=== PATIENT | male | born 1970 | race Caucasian/White ===

== ENCOUNTER 2022-07-25 09:28 | Emergency (ER) | payer MEDICARE ==
[2022-07-25] MEDS ORDERED: HYDROmorphone 0.5 MG/0.5 ML Syringe IVPUSH ONE ×2 (09:50→10:11)
[2022-07-25] MEDS ORDERED: Ondansetron 4 MG/2 ML SDV IVPUSH ONE (09:50)
[2022-07-25] MEDS ORDERED: Sodium Chloride 0.9% 1,000 ML IV SCH (10:00)
[2022-07-25 10:18] LABS: ESTIMATED GFR 103 mL/min (>60)
[2022-07-25] MEDS ORDERED: Alum Hydrox/Mag Hydrox/Simeth 15 ML, Lidocaine 2% 15 ML PO ONE ×2 (10:44)
[2022-07-25] MEDS ORDERED: Ketorolac 30 MG/ML SDV IVPUSH ONE (10:58)
== END 2022-07-25 13:15 | disposition home or self-care (01) ==
LOC: JP.ED 09:28
DX: K82.8 Other specified diseases of gallbladder (principal)
CPT/HCPCS: 36415; 74176; 76705; 80053; 83690; 85025; 96361; 96374; 96375; 99284; A9270; J1170; J1885; J2405; J7030

== ENCOUNTER 2022-07-26 13:47 | Inpatient (IN) | payer MEDICARE | END 2022-07-26 16:22 | disposition home or self-care (01) | DRG 446 | LOC: JP.MS 13:47 | PROVIDERS: ADMIT Student in an Organized Health Care Education/Training Program; ATTEND Student in an Organized Health Care Education/Training Program | DX: K81.0 Acute cholecystitis (principal); K21.9 Gastro-esophageal reflux disease without esophagitis; F17.210 Nicotine dependence, cigarettes, uncomplicated; F10.20 Alcohol dependence, uncomplicated ==

== ENCOUNTER 2022-07-27 07:04 | Inpatient (IN) | payer MEDICARE ==
[~2022-07-27 07:04] MED LIST: Sodium Chloride 0.9% 1,000 ML IV SCH
[2022-07-27 08:49] LABS: ESTIMATED GFR 106 mL/min (>60)
[2022-07-27] MEDS ORDERED: Ropivacaine 40 ML, dexAMETHasone 8 MG, EPINEPHrine 0.4 MG, Sodium Chloride 0.9% 37.6 ML NERVRT SCH ×4 (09:00)
[2022-07-27] MEDS ORDERED: ceFAZolin 2 GM in Sodium Chloride 0.9% 50 ML IV ONE (09:00)
[2022-07-27] MEDS ORDERED: metroNIDAZOLE/Normal Saline 500 MG in Premix Bag 1 BAG IV ONE (09:00)
[2022-07-27] MEDS ORDERED: Potassium Chloride 20 MEQ in Premix Bag 3 BAG IV ONE (09:03)
[2022-07-27] MEDS: Potassium Chloride 20 MEQ, Lidocaine 1% 2 ML in Sodium Chloride 0.9% 100 ML IV SCH ×3 (09:43→14:14)
[2022-07-27] MEDS ORDERED: HYDROmorphone 0.5 MG/0.5 ML Syringe IVPUSH PRN (09:44)
[2022-07-27] MEDS ORDERED: Ondansetron 4 MG/2 ML SDV IVPUSH PRN (09:44)
[2022-07-27] MEDS ORDERED: Potassium Chloride 20 MEQ Tab.ER PO ONE (09:45)
[2022-07-27] MEDS ORDERED: Enoxaparin 40 MG/0.4 ML Syringe SUBCUT ONE (10:00)
[2022-07-27] MEDS: Ampicillin/Sulbactam Na 1.5 GM in Sodium Chloride 0.9% 50 ML IV SCH ×3 (11:01→22:46)
[2022-07-27] MEDS: Acetaminophen 325 MG Tab PO PRN ×3 (11:46→20:18)
[2022-07-27] MEDS: Ketorolac 30 MG/ML SDV IVPUSH PRN ×2 (11:46→19:40)
[2022-07-27] MEDS ORDERED: Sodium Chloride 0.9% 1,000 ML IV SCH (13:30)
[2022-07-27] MEDS: Sodium Chloride 0.9% 1,000 ML IV SCH (15:54)
[2022-07-27] MEDS ORDERED: MVI, Adult with Vitamin K 10 ML, Thiamine 100 MG, Folic Acid 1 MG, Magnesium Sulfate 2 ... IV ONE ×5 (16:17)
[2022-07-27] MEDS ORDERED: LORazepam 1 MG Tab PO SCH (16:30)
[2022-07-27] MEDS ORDERED: LORazepam 2 MG/ML SDV ONE (16:36)
[2022-07-27] MEDS: LORazepam 2 MG/ML SDV IV SCH ×2 (16:40→19:40)
[2022-07-27] MEDS: Gabapentin 400 MG Cap PO SCH ×2 (16:42→23:46)
[2022-07-27] MEDS ORDERED: Ibuprofen 400 MG Tab PO ONE (17:20)
[2022-07-28] MEDS: Ketorolac 30 MG/ML SDV IVPUSH PRN (02:03)
[2022-07-28] MEDS: LORazepam 2 MG/ML SDV IV SCH (02:04)
[2022-07-28] MEDS: Ampicillin/Sulbactam Na 1.5 GM in Sodium Chloride 0.9% 50 ML IV SCH (04:30)
[2022-07-28 04:40] LABS: ESTIMATED GFR 106 mL/min (>60)
[2022-07-28] MEDS: Acetaminophen 325 MG Tab PO PRN (05:15)
[2022-07-28] MEDS ORDERED: HYDROmorphone 0.5 MG/0.5 ML Syringe IVPUSH PRN (05:26)
[2022-07-28] MEDS: Sodium Chloride 0.9% 1,000 ML IV SCH (05:38)
[2022-07-28] MEDS ORDERED: Bupivacaine 0.5% 50 ML MDV ONE (07:30)
[2022-07-28] MEDS ORDERED: Lidocaine 1% with EPINEPHrine 1:100,000 50 ML MDV ONE (07:31)
[2022-07-28] MEDS ORDERED: Indocyanine Green 25 MG SDV ONE (07:32)
[2022-07-28] MEDS ORDERED: Potassium Chloride Riders 40 MEQ in Premix Bag 1 BAG IV ONE (07:51)
[2022-07-28] MEDS ORDERED: fentaNYL 250 MCG/5 ML SDV ONE ×2 (07:57→08:29)
[2022-07-28] MEDS ORDERED: Succinylcholine 200 MG/10 ML MDV ONE (07:58)
[2022-07-28] MEDS ORDERED: Glycopyrrolate 0.2 MG/ML 5 ML MDV ONE (07:58)
[2022-07-28] MEDS ORDERED: Ondansetron 4 MG/2 ML SDV ONE (07:58)
[2022-07-28] MEDS ORDERED: Rocuronium 50 MG/5 ML Vial ONE (07:58)
[2022-07-28] MEDS ORDERED: Propofol 200 MG/20 ML SDV ONE (07:58)
[2022-07-28] MEDS ORDERED: Neostigmine Methylsulfate 1 MG/ML 5 ML Syringe ONE (07:58)
[2022-07-28] MEDS ORDERED: Dexamethasone 4 MG/ML SDV ONE (07:58)
[2022-07-28] MEDS ORDERED: metroNIDAZOLE/Normal Saline 500 MG in Premix Bag 1 BAG IV ONE (08:00)
[2022-07-28] MEDS ORDERED: ceFAZolin 2 GM in Sodium Chloride 0.9% 50 ML IV ONE (08:00)
[2022-07-28] MEDS ORDERED: Ropivacaine 40 ML, dexAMETHasone 8 MG, EPINEPHrine 0.4 MG, Sodium Chloride 0.9% 37.6 ML NERVRT SCH ×4 (08:00)
[2022-07-28] MEDS ORDERED: Thiamine 100 MG Tab PO SCH (09:00)
[2022-07-28] MEDS ORDERED: Folic Acid 1 MG Tab PO SCH (09:00)
[2022-07-28] MEDS ORDERED: Bupivacaine 0.5% 50 ML MDV INJECT ONE (09:25)
[2022-07-28] MEDS ORDERED: Lidocaine 1% with EPINEPHrine 1:100,000 50 ML MDV INJECT ONE (09:25)
[2022-07-28] MEDS ORDERED: Ketorolac 30 MG/ML SDV ONE (09:43)
[2022-07-28] MEDS: Gabapentin 400 MG Cap PO SCH ×2 (11:20→14:48)
[2022-07-28] MEDS: Potassium Chloride 20 MEQ, Lidocaine 1% 2 ML in Sodium Chloride 0.9% 100 ML IV SCH ×2 (11:35→13:39)
== END 2022-07-28 16:00 | disposition home or self-care (01) | DRG 419 ==
LOC: JP.SDS 07:04 → JP.MS 07:10 → JP.SDS 07:10 → JP.MS 17:33 → JP.ICU 19:09
PROVIDERS: ADMIT Hospitalist; ATTEND Surgery
PROC: 0FT44ZZ Resection of Gallbladder, Percutaneous Endoscopic Approach (ICD-10-PCS; principal; 2022-07-27)
DX: K81.0 Acute cholecystitis (principal); E87.6 Hypokalemia; F17.200 Nicotine dependence, unspecified, uncomplicated; K21.9 Gastro-esophageal reflux disease without esophagitis; G89.29 Other chronic pain; H91.90 Unspecified hearing loss, unspecified ear; F10.10 Alcohol abuse, uncomplicated
CPT/HCPCS: 36415; 80053; 84132; 85025; 87040; 87070; 87075; 87077; 87186; 87205; 88304; 88307; 88313; 99222; A9270-GY; J0171; J0295; J0330; J0690; J1100; J1170; J1650; J1885; J2060; J2405; J2704; J2710; J2795; J3010; J3411; J3475; J3480; J3490; J7030; U0002

== ENCOUNTER 2024-04-07 21:39 | Emergency (ER) | payer MEDICARE ==
[2024-04-07] MEDS: fentaNYL 100 MCG/2 ML SDV IVPUSH ONE (22:35)
[2024-04-07] MEDS: Ondansetron 4 MG/2 ML SDV IVPUSH ONE (22:37)
[2024-04-07 22:38] LABS: BASOPHILS ABSOLUTE AUTO 0.06 K/uL (0.00-0.10); BASOPHILS PERCENT AUTO 0.6 % (0.1-1.3); EOSINOPHILS ABSOLUTE AUTO 0.09 K/uL (0.00-0.40); HEMATOCRIT 46.4 % (38.4-49.7); HEMOGLOBIN 16.5 g/dL (12.9-16.9); IMMATURE GRAN ABSOLUTE AUTO 0.04 K/uL (0.00-0.23); IMMATURE GRAN PERCENT AUTO 0.4 % (0.0-0.7); LYMPHOCYTES PERCENT AUTO 8.6 % (11.4-47.7); MEAN CORPUSCULAR HEMOGLOBIN 33.3 pg (31.6-35.5); MEAN CORPUSCULAR HGB CONC 35.6 g/dL (31.6-35.5); MEAN CORPUSCULAR VOLUME 93.5 fL (81.4-99.0); MONOCYTES ABSOLUTE AUTO 0.59 K/uL (0.20-0.90); MONOCYTES PERCENT AUTO 6.4 % (3.3-12.6); NEUTROPHILS ABSOLUTE AUTO 7.69 K/uL (1.0-7.6); PLATELET COUNT,PLT 237 K/uL (130-375); RED BLOOD CELL COUNT 4.96 M/uL (4.14-5.76); WHITE BLOOD CELL COUNT,WBC 9.3 K/uL (3.2-11.0)
[2024-04-07 22:53] LABS: A/G RATIO 0.9 (1.2-2.2); ALANINE AMINOTRANSFERASE,ALT 31 U/L (12-78); ALBUMIN 3.6 g/dL (3.4-5.0); ALKALINE PHOSPHATASE 87 U/L (46-116); ASPARTATE AMNIOTRANSFERASE,AST 23 U/L (15-37); BILIRUBIN TOTAL 0.4 mg/dL (0.2-1.0); BLOOD UREA NITROGEN,BUN 7 mg/dL (7-18); CALCIUM 8.5 mg/dL (8.5-10.1); CARBON DIOXIDE,CO2 24 mmol/L (21-32); CHLORIDE,CL 96 mmol/L (100-108); CREATININE 1.1 mg/dL (0.8-1.3); EST CRCL DRUG DOSING (CG) 82.72 mL/min; ESTIMATED GFR 80 mL/min (>60); GLUCOSE RANDOM 142 mg/dL (74-106); PROTEIN TOTAL,TP 7.7 g/dL (6.4-8.2); SODIUM,NA 129 mmol/L (140-148)
[2024-04-07] MEDS: HYDROmorphone 1 MG/ML Syringe IVPUSH ONE (22:54)
[2024-04-07] MEDS: Sodium Chloride 0.9% 10 ML Syringe FLUSH PRN (22:54)
[2024-04-07] MEDS: Ketorolac 30 MG/ML SDV IVPUSH ONE (23:19)
[2024-04-07] MEDS: Iopamidol 612 MG/ML 100 ML Bottle IV SCH (23:25)
[2024-04-07] MEDS: Sodium Chloride 0.9% 80 ML IV SCH (23:25)
[2024-04-07] MEDS: Sodium Chloride 0.9% 1,000 ML IV STA (23:34)
[2024-04-08] MEDS: Alum Hydrox/Mag Hydrox/Simeth 15 ML, Lidocaine 2% 15 ML PO ONE (01:04)
[2024-04-08] MEDS: Hyoscyamine 0.125 MG Tab.SL SL ONE (01:04)
[2024-04-08] MEDS ORDERED: Simethicone 125 MG Tab.Chew PO STA (02:05)
[2024-04-08 02:42] LABS: APPEARANCE,URINE CLEAR (CLEAR); BILIRUBIN,URINE NEGATIVE (NEGATIVE); COLOR,URINE YELLOW (YELLOW); GLUCOSE,URINE NEGATIVE (NEGATIVE); KETONES,URINE NEGATIVE (NEGATIVE); LEUKOCYTE ESTERASE,URINE NEGATIVE (NEGATIVE); NITRITE,URINE NEGATIVE (NEGATIVE); OCCULT BLOOD,URINE NEGATIVE (NEGATIVE); PROTEIN,URINE NEGATIVE (NEGATIVE); UROBILINOGEN,URINE 0.2 EU/dL (0.2-1.0)
[2024-04-08 02:44] LABS: AMORPHOUS SEDIMENT,URINE NOT SEEN; BACTERIA,URINE FEW; EPITHELIAL CELLS,URINE RARE; MUCUS,URINE NOT SEEN; RBC,URINE 0-5 (0-5); WBC,URINE 0-5 (0-5)
== END 2024-04-08 02:50 | disposition home or self-care (01) ==
LOC: JP.ED 21:39
DX: R10.11 Right upper quadrant pain (principal); F17.210 Nicotine dependence, cigarettes, uncomplicated
CPT/HCPCS: 36415; 74177; 76705; 80053; 81001; 83605; 83690; 84484; 85025; 96374; 96375; 99284; 99284-25; A9270-GY; J1170; J1885; J2405; J3010; J3490; J7030; Q9967